=== PATIENT | female | born 1985 | race Caucasian/White ===

== ENCOUNTER → 2016-10-22 | Outpatient (CLI) | payer OTHER ==
--- NOTE | 2016-10-22 10:06 | US ---
Dear Dr. Yang, Thank you for sending your patient, Elizabeth Franco, to us for an US and consultation to assess anatomy. As you know, the patient is a 30 y.o. G1, P0 at 19 weeks and 4 days with an EDC of 03/14/17 based on LMP and 12 week US. Her is complicated by Zika exposure with negative serum testi ng. Genetic Screening: Sequential Screen reassuring The patient denies any uterine contractions, vaginal bleeding, or loss of fluid. Today, she is witho ut complaints. US FINDINGS: Number of fetuses: 1 Placental location: Anterior, No previa Placental Cord Insertion: Central presentation: Variable Cervix: 4.6 cm, transabdominally MVP: 3.9 cm The adnexa were evaluated. No pathology was seen. Right ovary: Normal Left ovary: Normal heart rate: 142 bpm Measurements: Biparietal diameter: 44 mm, 19 weeks 3 days Head circumference: 172 mm, 19 weeks 6 days Abdominal circumference: 146 mm, 20 weeks 0 days Femur length: 31 mm, 19 weeks 4 days Humerus length: 32 mm, 20 weeks 5 days Transcerebellar diameter: 20 mm, 19 weeks 3 days Average ultrasound age: 19 weeks 5 days Estimated weight: 306 g weight percentile: 52% Anatomy: Supratentorial brain: Normal Cerebral lateral ventricle: 4 mm Posterior fossa: Normal Cisterna magna: 5 mm Nuchal fold: 4.6 mm Face: - Lip: Normal - Profile: Normal - Alveolar Ridge: Suboptimal Spine: -- Cervical: Normal -- Thoracic: Normal -- Lumbar: Normal -- Sacral: Normal Heart: -- 4 Chamber: Normal -- Intraventricular septum: Appears intact by Color and Spectral US -- Right Outflow Tract: Suboptimal -- Left Outflow Tract: Suboptimal -- 3 Vessel View: Suboptimal -- Aortic Arch: Suboptimal -- Ductal Arch: Normal -- Caval View: Suboptimal Diaphragm: Suboptimal Stomach: Normal Abdominal Umbilical Cord Insertion: Normal Right kidney: Normal Left kidney: Normal Bladder: Normal Number of cord vessels: 3 Upper extremities: -- Right Arm: Normal -- Right Hand: Suboptimal -- Left Arm: Normal -- Left Hand: Suboptimal Lower extremities: -- Right Leg: Normal -- Right Foot: Suboptimal -- Left Leg: Normal -- Left Foot: Suboptimal Gender: Limited visualization, but appears female IMPRESSION: 1. Anatomy: The fetus measures appropriate for gestational age, measuring a normal weight and perce ntile. Visualization of the fetus today reveals no overt structural anomalies. However, the pa late, cardiac views, diaphragm, hands, and feet were not well seen secondary to position. Ther e is evidence of normal amniotic fluid, and movement was seen during the examination. - Follow-up anatomy un 4 weeks 2. Genetic Screening: This patient has had reassuring Sequential Screen results this . Toda y, no markers of aneuploidy were seen. While her screening and US results are reassuring, we r eviewed that aneuploidy can only be definitively excluded with diagnostic testing via amniocen tesis. After this discussion, the patient does not wish to proceed with invasive testing at this bernardino e. 3. Zika Exposure: Today, the head size and intracranial anatomy appear reassuring. Despite her negative serum testing, the CDC recommends serial US to assess head size and intracranial jak eufemia. - US in 4 weeks to assess head size and intracranial anatomy - Continued condom use until 6 months from return to US Thank you again for sending this patient to see us today. Approximately 15 minutes of a total visit time of 12 minutes were spent with this patient today in direct face to face counseling regarding to day's US findings and the above recommendations. Please feel free to contact me with any questions at . Katrina Rojas MD Maternal- Medicine
--- NOTE | 2016-10-22 10:20 | US ---
OB Sonogram History: HUMAIRA 03/14/2017, 19 weeks 4 days, check growth and anatomy, Zika exposure Comparison: September 05, 2016 Findings: There is a single viable uterine gestation in variable lie. The placenta is anterior witho ut evidence of previa. The lower margin of the placenta is approximately 3.2 cm above the internal o s. The umbilical cord inserts normally into the placenta. The cervix is closed measuring 4.6 cm torres sabdominally. The maternal left ovary is normal. The maternal right ovary is normal. Maximum amnioti c fluid pocket = 8.9 cm. The visualized intracranial contents, face and spine look normal. The heart is 4 chambered and has a rate of 142 bpm. The right and left ventricular outflow tracks and in terventricular septum look normal. Fluid is identified in the stomach and urinary bladde r. The renal region normal. The umbilical cord has 3 vessels and a normal insertion site. Ther e are 4 extremities. BPD = 44 mm = 19 weeks 3 days Head circumference = 172 mm = 19 weeks 6 days Abdominal circumference = 146 mm = 20 weeks 0 day Femur length = 31 mm = 19 weeks 4 days Humeral length = 32 mm = 20 weeks 5 days Cerebellar width = 20 mm = 19 weeks 3 days Cisterna magna = 5.2 mm Estimated weight = 306 g = 52 percentile Average gestational age by ultrasound = 19 weeks 5 days Ultrasound HUMAIRA March 13, 2017 Impression: Size consistent with dates. Normal anatomy. This report should be read in conjunction with a consultation by Dr. Katrina Rojas.
== END ==
LOC: FIMAGING 08:06
PROVIDERS: ATTEND Obstetrics & Gynecology
DX: Z03.79 Encounter for other suspected maternal and fetal conditions ruled out (principal); Z3A.19 19 weeks gestation of pregnancy

== ENCOUNTER → 2016-11-04 | Outpatient (CLI) | payer OTHER | LOC: FIMAGING 09:48 | PROVIDERS: ATTEND Obstetrics & Gynecology | DX: O26.612 Liver and biliary tract disorders in pregnancy, second trimester (principal); O10.919 Unspecified pre-existing hypertension complicating pregnancy, unspecified trimester; Z3A.21 21 weeks gestation of pregnancy ==

== ENCOUNTER → 2016-11-18 | Outpatient (CLI) | payer OTHER | LOC: FIMAGING 13:39 | PROVIDERS: ATTEND Obstetrics & Gynecology | DX: Z34.02 Encounter for supervision of normal first pregnancy, second trimester (principal); Z3A.23 23 weeks gestation of pregnancy; Z20.828 Contact with and (suspected) exposure to other viral communicable diseases ==

== ENCOUNTER → 2016-12-19 | Outpatient (CLI) | payer OTHER | LOC: FIMAGING 14:09 | PROVIDERS: ATTEND Obstetrics & Gynecology | DX: O35.3XX1 Maternal care for (suspected) damage to fetus from viral disease in mother, fetus 1 (principal); Z20.828 Contact with and (suspected) exposure to other viral communicable diseases; Z3A.27 27 weeks gestation of pregnancy ==

== ENCOUNTER → 2017-01-28 | Outpatient (CLI) | payer OTHER | LOC: FIMAGING 08:47 | PROVIDERS: ATTEND Obstetrics & Gynecology | DX: O35.3XX1 Maternal care for (suspected) damage to fetus from viral disease in mother, fetus 1 (principal); Z20.828 Contact with and (suspected) exposure to other viral communicable diseases; O14.03 Mild to moderate pre-eclampsia, third trimester; Z3A.33 33 weeks gestation of pregnancy ==

== ENCOUNTER 2017-02-18 16:28 | Observation (INO) | payer OTHER ==
[2017-02-18 17:06] LABS: % IMMATURE GRANULYOCYTES 1.3 % (0.0-1.1); ABSOLUTE IMMATURE GRANULOCYTES 0.12 10^3/uL (0.00-0.10); ADD DIFF? NO; ADD MORPH? NO; ADD SCAN? NO; ATYPICAL LYMPHOCYTE FLAG 0 (0-99); FRAGMENT RBC FLAG 0 (0-99); HEMATOCRIT 36.7 % (38.0-47.0); HEMOGLOBIN 12.8 g/dL (12.6-16.3); LEFT SHIFT FLG 10 (0-99); LIPEMIA HEMOLYSIS FLAG 90 (0-99); MEAN CELL HEMOGLOBIN CONCENTR. 34.9 g/dL (32.4-36.7); MEAN CELL VOLUME 88.9 fL (81.5-99.8); MEAN PLATELET VOLUME 11.7 fL (8.7-11.7); PLATELET CLUMPS FLAG 0 (0-99); PLATELET COUNT 202 10^3/uL (150-400); RED BLOOD CELL COUNT 4.13 10^6/uL (4.18-5.33); RED CELL DISTRIBUTION WIDTH 12.5 % (11.5-15.2)
[2017-02-18 17:09] LABS: ALANINE AMINOTRANSFERASE 35 IU/L (9-52); ASPARTATE AMINOTRANSFERASE 23 IU/L (14-46); BILIRUBIN,TOTAL 0.5 mg/dL (0.1-1.4); BILIRUBIN-CONJUGATED 0.3 mg/dL (0.0-0.5); BILIRUBIN-UNCONJUGATED 0.2 mg/dL (0.0-1.1); CREATININE 0.5 mg/dL (0.6-1.0); GLOMERULAR FILTRATION RATE > 60; LACTATE DEHYDROGENASE 462 IU/L (313-618); URIC ACID 4.4 mg/dL (2.5-6.8)
[2017-02-18] MEDS ORDERED: BETAMETHASONE IM SYRINGE IM ONE (18:22)
--- NOTE | 2017-02-18 20:18 | GHP ---
[f rep st] HISTORY AND PHYSICAL DATE OF ADMISSION: 02/18/2017 OB Triage Note CHIEF COMPLAINT: None. HISTORY OF PRESENT ILLNESS: The patient is a 31-year-old 1, para 0 female at 36 weeks and 4 days estimated gestational age, who presented for her routine nonstress test in clinic and was note d to have an elevated blood pressure of 160/76. She denied any visual changes, headaches, right upp er quadrant pain, or any other complaints. She denied any vaginal bleeding, leakage of fluid, contr actions, and reported good movement. The patient was sent to Labor and Delivery for further e valuation. She currently still has no symptoms of preeclampsia. Her , her course significant for the following: Genetic screening negative: Alarm Security Or Surveillance Monitor madeline hypertension with suspected mild preeclampsia. PAST MEDICAL HISTORY: Chronic hypertension. OBJECTIVE: VITAL SIGNS: Blood pressure 107 to 133 over 56 to 74, heart rate 88. HEART RATE TRACING: Reactive and reassuring with a baseline in the 130s with accelerations and moderate variab ility present. TOCOMETER: No contractions seen. GENERAL: No acute distress. Well-developed, wel l-nourished female. CHEST: Clear to auscultation bilaterally. CARDIOVASCULAR: Regular rate and r hythm. EXTREMITIES: DTRs 2+ bilaterally. LABORATORY DATA: CBC and PIH panel are normal with a hematocrit of 36.7, platelets of 202. Serum c reatinine at 0.5. Uric acid of 4.4. Liver function tests that are normal. ASSESSMENT: Patient is a 31-year-old 1, para 0 female at 36 weeks and 4 days estimated gest ational age with history of chronic hypertension. PLAN: 1. Chronic hypertension: The patient had one blood pressure in clinic that was elevated at 160/76. Since she has been observed on Labor and Delivery there have been completely normal blood pressure s. The patient is asymptomatic and she has normal serum preeclampsia labs, in fact her uric acid de creased from 4.6 to 4.4. Since all of her blood pressures are quite normal, I discussed her case wi th the perinatologist, who agreed that this is not currently concerning for preeclampsia. We will a llow the patient to be discharged home and will continue to monitor her closely as an outpatient. I discussed the case with Dr. Alexa Heredia and she indicated that as long as her blood pressures remai yun less than 160/105 that it is very reasonable to allow the patient to continue with the plan for induction as scheduled next week at 37 weeks and 5 days. 2. status reassuring: A rescue course of steroids were discussed due to her late sta tus and recommended by the perinatologist. We will give her one dose of betamethasone today and hav e her follow up for the second dose tomorrow in clinic. 3. Disposition: We will plan for followup in clinic tomorrow afternoon for repeat blood pressure c heck, NST, and second dose of steroids. Strict preeclampsia precautions were reviewed, and all ques tions were answered. /[id number]/MODL
== END 2017-02-18 19:00 | disposition home or self-care (01) ==
LOC: FLD 16:28
PROVIDERS: ADMIT Obstetrics & Gynecology; ATTEND Obstetrics & Gynecology
DX: O10.913 Unspecified pre-existing hypertension complicating pregnancy, third trimester (principal); Z3A.36 36 weeks gestation of pregnancy
CPT/HCPCS: 59025; 96372; G0378; J0702

== ENCOUNTER 2017-02-26 17:00 | Inpatient (IN) | payer OTHER ==
--- NOTE | 2017-02-26 18:30 | GHP ---
[f rep st] HISTORY AND PHYSICAL DATE OF ADMISSION: 02/26/2017 CHIEF COMPLAINT: Induction of labor for superimposed preeclampsia without severe features. HISTORY OF PRESENT ILLNESS: The patient is a 31-year-old, 1, para 0, at 37 weeks 5 days estimated gestational age by last menstrual period and 1st trimester ultrasound, who presents for induction of labor. Her has been complicated by chronic hypertension that has been controlled in the mild range without medications. Her blood pressures began increasing in the last few weeks and a 24-hour urine protein was done demonstrating protein of 435 g; in the 1st trimester, it had been less than 115. The remainder of her preeclampsia labs have been within normal limits and her blood pressures have stayed within mild range but, based on the new elevation in protein, she meets criteria for superimposed preeclampsia. She has been in testing with reassuring heart rate tracing and normal fluid. She has an active baby. She denies any contractions, leaking or bleeding. She presented to the office today and had a Seo bulb placed. REVIEW OF SYSTEMS: Negative except per HPI. PAST MEDICAL HISTORY: Chronic hypertension. PAST SURGICAL HISTORY: Toe surgery in 2007. FAMILY HISTORY: Noncontributory. SOCIAL HISTORY: She is . She denies tobacco, alcohol or drug use. MEDICATIONS: vitamins. ALLERGIES: None. OBJECTIVE: VITAL SIGNS: Pending admission to labor and delivery. GENERAL: Alert, awake. No acute distress. CARDIOVASCULAR: Regular rate and rhythm. RESPIRATORY: Lungs are clear. ABDOMEN: Gravid, soft, nontender. EXTREMITIES: No edema. STERILE VAGINAL: 1 cm dilation, 50% effaced, -2 station. Vertex presentation. A Seo bulb placed without difficulty with 30 cc of saline. LABORATORY DATA: complicated by exposure to Zika with negative serum testing, mildly elevated LFTs which have since resolved and she was found to have low-grade hepatic steatosis on right upper quadrant ultrasound. She has completed her Tdap vaccine. She had a normal nuchal translucency ultrasound and sequential screen and is not a carrier for cystic fibrosis. OB laboratories notable for blood type A positive, antibody screen negative. Hematocrit 39.4 in the 1st trimester. Normal Pap smear. She is immune to varicella and rubella, nonreactive to RPR, hep B surface antigen, and HIV. Negative urine culture. Negative gonorrhea and chlamydia. Normal 1-hour Glucola of 102. Repeat hemoglobin 11.8. Group B strep negative on 02/14/2017. She had a normal anatomy ultrasound. ASSESSMENT AND PLAN: The patient is a 31-year-old, 1, para 0, at 37 weeks and 5 days estimated gestational age. She presents for induction of labor for superimposed preeclampsia without severe features. Seo bulb has been placed. NST will be performed at time of admission to L&D. Will monitor blood pressures and check her preeclampsia labs to ensure that magnesium is not indicated for seizure prophylaxis. Will plan to start Pitocin at 5:00 am tomorrow morning. We reviewed the risks and benefits of induction in detail and she agrees to proceed. Group B strep is negative. No antibiotics are indicated. Plan routine intrapartum care. /[id number]/MODL MTDD
[2017-02-26] MEDS ORDERED: LIDOCAINE 1% 300 MG/30 ML SDV ONE (18:49)
[2017-02-26] MEDS ORDERED: TERBUTALINE SULFATE 1 MG/ML VIAL ONE (18:49)
[2017-02-26] MEDS ORDERED: MISOPROSTOL 200 MCG TAB ONE (18:49)
[2017-02-26] MEDS ORDERED: OLIVE OIL 118 ML BTL ONE (18:49)
[2017-02-26] MEDS ORDERED: AMMONIA AROMATIC 1 EACH AMP IH ONE (18:49)
[2017-02-26] MEDS ORDERED: ZOLPIDEM TARTRATE 5 MG TAB PO PRN (18:51)
[2017-02-26] MEDS ORDERED: ACETAMINOPHEN 325 MG TAB PO PRN (18:52)
[2017-02-26] MEDS ORDERED: CALCIUM CARBONATE 500 MG CHEWABLE TAB PO PRN (18:52)
[2017-02-26] MEDS ORDERED: OXYTOCIN/RINGERS LACTATE 1,000 ML IV PRN (18:53)
[2017-02-26] MEDS ORDERED: LR 1,000 ML IV PRN (18:53)
[2017-02-26] MEDS ORDERED: EPSOM SALT 454 GM TP PRN (18:53)
[2017-02-26] MEDS ORDERED: OLIVE OIL 118 ML BTL MISC PRN (18:53)
[2017-02-26] MEDS ORDERED: TERBUTALINE SULFATE 1 MG/ML VIAL IV PRN (18:53)
[2017-02-26 22:14] LABS: % IMMATURE GRANULYOCYTES 1.4 % (0.0-1.1); ABSOLUTE IMMATURE GRANULOCYTES 0.15 10^3/uL (0.00-0.10); ADD DIFF? NO; ADD MORPH? NO; ADD SCAN? NO; ATYPICAL LYMPHOCYTE FLAG 10 (0-99); FRAGMENT RBC FLAG 10 (0-99); HEMATOCRIT 36.8 % (38.0-47.0); HEMOGLOBIN 12.8 g/dL (12.6-16.3); LEFT SHIFT FLG 10 (0-99); LIPEMIA HEMOLYSIS FLAG 90 (0-99); MEAN CELL HEMOGLOBIN 31.1 pg (27.9-34.1); MEAN CELL HEMOGLOBIN CONCENTR. 34.8 g/dL (32.4-36.7); MEAN CELL VOLUME 89.5 fL (81.5-99.8); MEAN PLATELET VOLUME 11.9 fL (8.7-11.7); PLATELET CLUMPS FLAG 60 (0-99); PLATELET COUNT 209 10^3/uL (150-400); RED BLOOD CELL COUNT 4.11 10^6/uL (4.18-5.33); RED CELL DISTRIBUTION WIDTH 12.4 % (11.5-15.2)
[2017-02-26] MEDS ORDERED: OXYTOCIN/LR *STANDARD DOSE PROTOCOL IV SCH (22:30)
--- NOTE | 2017-02-27 08:38 | OBPROG ---
OBG Labor Progress Note Assessment/Plan: Assessment: Pt is a 31 y/o at 37+6 weeks EGA admitted for IOL for CHTN and superimposed mild preeclampsia - Plan: 1) status reassuring, cat 1 2) Labor - will continue w/ induction with pitocin 3) Pain - no issues, may have HUNG when desired 4) GBS neg 02/27/17 08:37 Subjective: Pt feels well, no complaints except a little RUQ discomfort. Objective: 02/26/17 21:00 Patient ABO/Rh A POSITIVE 02/26/17 21:00 - SVE Dilation (cm): 4 Effacement (%): 50 Station: -3 Pratt Current Contraction Pattern: Irregular FHR (bpm): 140 FHR Pattern Variability: Moderate FHR Category: 1 Membranes: AROM Amniotic Fluid Color: Clear - Procedures Non-surgical Procedures: Amniotomy Oxytocin Orders Assessment - Pre-Induction/Augmentation Assessment Gestational Age: 37 week(s) and 5 day(s) ICD10 Worksheet Patient Problems: Problems Problem Status Onset Pre-eclampsia added to pre-existing hypertension Acute Chronic hypertension in obstetric context in third trimester Acute - ICD10 Problem Qualifiers (1) Pre-eclampsia added to pre-existing hypertension
[2017-02-27 09:30] LABS: ALANINE AMINOTRANSFERASE 27 IU/L (9-52); ASPARTATE AMINOTRANSFERASE 22 IU/L (14-46); BILIRUBIN,TOTAL 0.9 mg/dL (0.1-1.4); BILIRUBIN-CONJUGATED 0.4 mg/dL (0.0-0.5); BILIRUBIN-UNCONJUGATED 0.5 mg/dL (0.0-1.1); CREATININE 0.5 mg/dL (0.6-1.0); GLOMERULAR FILTRATION RATE > 60; LACTATE DEHYDROGENASE 473 IU/L (313-618); URIC ACID 5.2 mg/dL (2.5-6.8)
[2017-02-27] MEDS ORDERED: BUPIVACAINE 0.25% 30 ML SDV ONE (12:13)
[2017-02-27] MEDS ORDERED: PHENYLEPHRINE HCL 100 MCG/ML SYR ONE (12:13)
[2017-02-27] MEDS ORDERED: fentaNYL 2MCG/ML/BUP 0.1% RTU 100 ML BAG EP ONE (12:13)
[2017-02-27] MEDS ORDERED: fentaNYL 100 MCG/2 ML INJ ONE (12:14)
[2017-02-27] MEDS ORDERED: ONDANSETRON 4 MG/2 ML VIAL IVP PRN (12:58)
[2017-02-27] MEDS ORDERED: PHENYLEPHRINE HCL 100 MCG/ML SYR IVP PRN (12:58)
[2017-02-27] MEDS ORDERED: LR 500 ML IV SCH (13:00)
[2017-02-27] MEDS ORDERED: fentaNYL 2MCG/ML/BUP 0.1% RTU 100 ML EP SCH (13:00)
--- NOTE | 2017-02-27 13:03 | PREANESOB ---
Obstetric Pre-Anesthesia Info - General Info Proposed Procedure: Labor and delivery with pitocin. : 1 Para: 0 WBD: 38 - Info Status: Full Term Monitors: External FHR Baseline (bpm): 140 FHR Pattern: Reassuring - Labor Status Cervical Dilation per last OB SVE: 4 Station per last OB SVE: -3 Rupture of Membranes Time: 09:00 Pitocin: In Use PIH: Mild Indications for Labor Analgesia: Induction of Labor, Pain Control Labor Epidural: Proposed Anesthesia ROS: Prior general anesthesia for foot surgery. Allergies/Adverse Reactions: Allergy/AdvReac Type Severity Reaction Status Date / Time No Known Allergies Allergy Unverified 02/18/17 18:22 Home Medications: Medication Instructions Recorded Docusate Sodium [Stool Softener] 50 mg PO 02/26/17 Iron 18 mg PO 02/26/17 Vit27&Calcium/Iron/FA 02/26/17 [] Visit Medications: Generic Name Dose Route Start Last Admin Trade Name Freq PRN Reason Stop Dose Admin Acetaminophen 650 mg 02/26/17 18:52 Tylenol PO 08/25/17 18:51 Q6 PRN Pain, Mild Able to Take PO Calcium Carbonate 1,000 mg 02/26/17 18:52 Tums PO 08/25/17 18:51 Q4 PRN GERD Lactated Ringer's 1,000 mls @ 0 mls/hr 02/26/17 18:53 Lr IV 08/25/17 18:52 PRN PRN SEE PROTOCOL CONDITIONS Protocol Per Protocol Oxytocin/Lactated Ringer's 1,000 mls @ 150 mls/hr 02/26/17 18:53 Pitocin 20 Units/Lr (Premix) IV PRN PRN Post- bleeding Oxytocin/Lactated Ringer's 500 mls @ 0 mls/hr 02/26/17 22:30 Pitocin 30 Units/Lr (Premix) IV 08/25/17 22:29 CONT LYNDON Protocol Per Protocol Ibuprofen 600 mg 02/26/17 18:53 Motrin PO 08/25/17 18:52 Q6HRS PRN post , inflammation Magnesium Sulfate 454 gm 02/26/17 18:53 Epsom Salt TP 08/25/17 18:52 PRN PRN perineal discomfort Central Oil 118 ml 02/26/17 18:53 Sweet Oil MISC 08/25/17 18:52 ONCE PRN preneal massage Terbutaline Sulfate 0.25 mg 02/26/17 18:53 Brethine IV 08/25/17 18:52 ONCE PRN Tachysystole Zolpidem Tartrate 5 - 10 mg 02/26/17 18:51 02/26/17 21:27 Ambien PO 08/25/17 18:50 5 mg HS PRN Administration Sleep/Insomnia Discontinued Medications Generic Name Dose Route Start Last Admin Trade Name Arianna PRN Reason Stop Dose Admin Ammonia (Aromatic Spirit) Confirm 02/26/17 18:49 Ammonia Aromatic Administered 02/26/17 18:50 Dose 1 each IH .STK-MED ONE Bupivacaine HCl Confirm 02/27/17 12:13 Sensorcaine 0.25% Sdv Administered 02/27/17 12:14 Dose 30 ml .ROUTE .STK-MED ONE Fentanyl Confirm 02/27/17 12:14 Sublimaze Administered 02/27/17 12:15 Dose 100 mcg .ROUTE .STK-MED ONE Fentanyl/Bupivacaine HCl Confirm 02/27/17 12:13 Fentanyl/Bupivacaine/Ns 2 Mcg/Ml 0.1% (Premix Administered 02/27/17 12:14 Dose 100 ml EP .STK-MED ONE Lidocaine HCl Confirm 02/26/17 18:49 Lidocaine Hcl 1% Administered 02/26/17 18:50 Dose 300 mg .ROUTE .STK-MED ONE Misoprostol Confirm 02/26/17 18:49 Cytotec Administered 02/26/17 18:50 Dose 1,000 mcg .ROUTE .STK-MED ONE Central Oil Confirm 02/26/17 18:49 Sweet Oil Administered 02/26/17 18:50 Dose 118 ml .ROUTE .STK-MED ONE Phenylephrine HCl Confirm 02/27/17 12:13 Neosynephrine Administered 02/27/17 12:14 Dose 1,000 mcg .ROUTE .STK-MED ONE Terbutaline Sulfate Confirm 02/26/17 18:49 Brethine Administered 02/26/17 18:50 Dose 1 mg .ROUTE .STK-MED ONE - Anesthesia History Response to Local Anesthetics: Normal Anesthesia & Operative History: No Prior Problems Family Anesthesia History: Negative - Social History Substance Use/Abuse: Denies - Focused Exam Blood Pressure: 112/71 Heart Rate: 83 Respiratory Rate: 16 Height/Weight (Nursing): Height 160.02 cm Weight 105.687 kg Physical Exam: Within normal limits. ASA Status: II Labs: 02/26/17 21:00 02/27/17 09:00 Patient ABO/Rh A POSITIVE 02/26/17 21:00 Uric Acid 5.2 mg/dL (2.5-6.8) 02/27/17 09:00 Total Bilirubin 0.9 mg/dL (0.1-1.4) 02/27/17 09:00 Conjugated Bilirubin 0.4 mg/dL (0.0-0.5) 02/27/17 09:00 Unconjugated Bilirubin 0.5 mg/dL (0.0-1.1) 02/27/17 09:00 AST 22 IU/L (14-46) 02/27/17 09:00 ALT 27 IU/L (9-52) 02/27/17 09:00 Lactate Dehydrogenase 473 IU/L (313-618) 02/27/17 09:00 - Plan Anesthetic Plan: CSE Consent Signed and on Chart: Yes Patient/Guardian Understands and Agrees to Plan: Yes
--- NOTE | 2017-02-27 13:05 | POSTANESTH ---
Post Anesthetic Evaluation Cardiovascular Status: Normal, Stable Respiratory Status: Normal, Stable, Similar to Pre-op Cond. Level of Consciousness/Mental Status: Can Participate in Eval, Alert and Oriented Pain Control: Adequate, Prn Tx Ordered Nausea/Vomiting Control: Adequate, Prn Tx Ordered Complications Possibly Related to Anesthesia: None Noted
--- NOTE | 2017-02-27 13:17 | OBPROG ---
OBG Labor Progress Note Assessment/Plan: Assessment: Pt is a 31 y/o at 37+6 weeks EGA admitted for IOL for CHTN and superimposed mild preeclampsia - Plan: 1) status reassuring, cat 1 2) Labor - will continue w/ induction with pitocin 3) Pain - no issues, HUNG working well 4) GBS neg 5) CHTN/preeclampsia - BP's stable in mild range, PIH labs normal. 02/27/17 13:16 Subjective: Pt feels comfortable now with HUNG in place. Objective: 02/26/17 21:00 02/27/17 09:00 Patient ABO/Rh A POSITIVE 02/26/17 21:00 Uric Acid 5.2 mg/dL (2.5-6.8) 02/27/17 09:00 Total Bilirubin 0.9 mg/dL (0.1-1.4) 02/27/17 09:00 Conjugated Bilirubin 0.4 mg/dL (0.0-0.5) 02/27/17 09:00 Unconjugated Bilirubin 0.5 mg/dL (0.0-1.1) 02/27/17 09:00 AST 22 IU/L (14-46) 02/27/17 09:00 ALT 27 IU/L (9-52) 02/27/17 09:00 Lactate Dehydrogenase 473 IU/L (313-618) 02/27/17 09:00 Temp Pulse Resp BP Pulse Ox 83 16 112/71 02/27/17 13:05 02/27/17 13:05 02/27/17 13:05 - SVE Dilation (cm): 4 Effacement (%): 100 Station: -1 Pratt Current Contraction Pattern: Regular FHR (bpm): 140 FHR Pattern Variability: Moderate FHR Category: 1 Membranes: AROM Amniotic Fluid Color: Clear - Procedures Non-surgical Procedures: Amniotomy Oxytocin Orders Assessment - Pre-Induction/Augmentation Assessment Gestational Age: 37 week(s) and 5 day(s) ICD10 Worksheet Patient Problems: Problems Problem Status Onset Pre-eclampsia added to pre-existing hypertension Acute Chronic hypertension in obstetric context in third trimester Acute - ICD10 Problem Qualifiers (1) Pre-eclampsia added to pre-existing hypertension
--- NOTE | 2017-02-27 18:42 | OBPROG ---
OBG Labor Progress Note Assessment/Plan: Assessment: Pt is a 31 y/o at 37+6 weeks EGA admitted for IOL for CHTN and superimposed mild preeclampsia - Plan: 1) status reassuring, cat 1 2) Labor - AL/C/+1. will continue w/ induction with pitocin. Will hopefully start pushing soon. 3) Pain - no issues, HUNG working well 4) GBS neg 5) CHTN/preeclampsia - BP's stable in mild range other than one elevated DBP just now; PIH labs normal. 02/27/17 18:41 Subjective: Pt is comfortable with HUNG. Objective: 02/26/17 21:00 02/27/17 09:00 Patient ABO/Rh A POSITIVE 02/26/17 21:00 Uric Acid 5.2 mg/dL (2.5-6.8) 02/27/17 09:00 Total Bilirubin 0.9 mg/dL (0.1-1.4) 02/27/17 09:00 Conjugated Bilirubin 0.4 mg/dL (0.0-0.5) 02/27/17 09:00 Unconjugated Bilirubin 0.5 mg/dL (0.0-1.1) 02/27/17 09:00 AST 22 IU/L (14-46) 02/27/17 09:00 ALT 27 IU/L (9-52) 02/27/17 09:00 Lactate Dehydrogenase 473 IU/L (313-618) 02/27/17 09:00 Temp Pulse Resp BP Pulse Ox 83 16 112/71 02/27/17 13:05 02/27/17 13:05 02/27/17 13:05 - SVE Dilation (cm): 9 Effacement (%): 100 Station: +1 Pratt Current Contraction Pattern: Regular FHR (bpm): 140 FHR Pattern Variability: Moderate FHR Category: 1 Membranes: AROM Amniotic Fluid Color: Clear - Procedures Non-surgical Procedures: Amniotomy Oxytocin Orders Assessment - Pre-Induction/Augmentation Assessment Gestational Age: 37 week(s) and 5 day(s) ICD10 Worksheet Patient Problems: Problems Problem Status Onset Pre-eclampsia added to pre-existing hypertension Acute Chronic hypertension in obstetric context in third trimester Acute - ICD10 Problem Qualifiers (1) Pre-eclampsia added to pre-existing hypertension
--- NOTE | 2017-02-27 19:43 | OBPROG ---
OBG Labor Progress Note Assessment/Plan: Assessment: Pt is a 31 y/o at 37+6 weeks EGA admitted for IOL for CHTN and superimposed mild preeclampsia - Plan: 1) status reassuring, cat 1 2) Labor - Still AL/C/+1, baby in LOP position. Will try different position changes to rotate the baby and recheck in 1 hour. Continue w/ induction with pitocin. 3) Pain - no issues, HUNG working well 4) GBS neg 5) CHTN/preeclampsia - BP's stable in mild range right now; admission PIH labs normal. 02/27/17 19:42 Subjective: No complaints. Comfortable with HUNG. Objective: 02/26/17 21:00 02/27/17 09:00 Patient ABO/Rh A POSITIVE 02/26/17 21:00 Uric Acid 5.2 mg/dL (2.5-6.8) 02/27/17 09:00 Total Bilirubin 0.9 mg/dL (0.1-1.4) 02/27/17 09:00 Conjugated Bilirubin 0.4 mg/dL (0.0-0.5) 02/27/17 09:00 Unconjugated Bilirubin 0.5 mg/dL (0.0-1.1) 02/27/17 09:00 AST 22 IU/L (14-46) 02/27/17 09:00 ALT 27 IU/L (9-52) 02/27/17 09:00 Lactate Dehydrogenase 473 IU/L (313-618) 02/27/17 09:00 Temp Pulse Resp BP Pulse Ox 83 16 112/71 02/27/17 13:05 02/27/17 13:05 02/27/17 13:05 - SVE Dilation (cm): 9 Effacement (%): 100 Station: +1 - Procedures Non-surgical Procedures: Amniotomy Oxytocin Orders Assessment - Pre-Induction/Augmentation Assessment Gestational Age: 37 week(s) and 5 day(s) ICD10 Worksheet Patient Problems: Problems Problem Status Onset Pre-eclampsia added to pre-existing hypertension Acute Chronic hypertension in obstetric context in third trimester Acute - ICD10 Problem Qualifiers (1) Pre-eclampsia added to pre-existing hypertension
--- NOTE | 2017-02-27 20:52 | OBPROG ---
OBG Labor Progress Note Assessment/Plan: Assessment: Pt is a 31 y/o at 37+6 weeks EGA admitted for IOL for CHTN and superimposed mild preeclampsia - Plan: 1) status reassuring, cat 1 2) Labor - Baby had descended further to +2 with soft anterior lip - the lip was easily reduced with pushing and has stayed reduced. Good pushing efforts, will continue pushing. Pitocin increased to 22 mU/min to increase the frequency of ctx. 3) Pain - no issues, HUNG working well 4) GBS neg 5) CHTN/preeclampsia - BP's stable in mild range right now; admission PIH labs normal. 02/27/17 20:50 Subjective: Pt comfortable. Objective: 02/26/17 21:00 02/27/17 09:00 Patient ABO/Rh A POSITIVE 02/26/17 21:00 Uric Acid 5.2 mg/dL (2.5-6.8) 02/27/17 09:00 Total Bilirubin 0.9 mg/dL (0.1-1.4) 02/27/17 09:00 Conjugated Bilirubin 0.4 mg/dL (0.0-0.5) 02/27/17 09:00 Unconjugated Bilirubin 0.5 mg/dL (0.0-1.1) 02/27/17 09:00 AST 22 IU/L (14-46) 02/27/17 09:00 ALT 27 IU/L (9-52) 02/27/17 09:00 Lactate Dehydrogenase 473 IU/L (313-618) 02/27/17 09:00 Temp Pulse Resp BP Pulse Ox 83 16 112/71 02/27/17 13:05 02/27/17 13:05 02/27/17 13:05 - SVE Dilation (cm): 10 Effacement (%): 100 Station: +2 Pratt Current Contraction Pattern: Regular FHR (bpm): 140 FHR Pattern Variability: Moderate FHR Category: 2 (occasional variable or early decels) Membranes: AROM Amniotic Fluid Color: Clear - Procedures Non-surgical Procedures: Amniotomy Oxytocin Orders Assessment - Pre-Induction/Augmentation Assessment Gestational Age: 37 week(s) and 5 day(s) ICD10 Worksheet Patient Problems: Problems Problem Status Onset Pre-eclampsia added to pre-existing hypertension Acute Chronic hypertension in obstetric context in third trimester Acute - ICD10 Problem Qualifiers (1) Pre-eclampsia added to pre-existing hypertension
--- NOTE | 2017-02-27 22:01 | OBDEL ---
Info Type: Vaginal GBS+: No Indications for Delivery: Chronic Hypertension Controlled No Meds, Preeclampsia Mild Vaginal Delivery - Labor and Delivery Onset of Contractions Date: 02/27/17 Onset of Contractions Time: 09:00 Onset of Contractions Type: Induced Rupture of Membranes Date: 02/27/17 Rupture of Membranes Time: 08:29 Rupture of Membranes Type: Artificial Amniotic Fluid Color: Clear Dilation Complete Date: 02/27/17 Dilation Complete Time: 20:35 Placenta Delivery Date: 02/27/17 Placenta Delivery Time: 21:28 Total Hours of Labor: 12 Non-surgical Procedures: Amniotomy Laceration: Other (Specify) (left vaginal sulcus at 0500 (no extention to perineum) and left labial repaired with interrupted 4-0 vicryl) Repair: 2-0, Vicryl Vaginal Sponge Count Correct: Yes Vaginal Needle Count Correct: Yes Vaginal Sweep Performed: Yes EBL: 250 cc Delivery Events: Nuchal Cord (reduced after delivery of the head, but tight. Body cord as well that baby delivered through.) Delivery Comment: Patient pushed and head delivered, tight nuchal cord reduced, then baby delivered through a body cord. Baby placed on maternal abdomen, but then cord clamped x 2 and cut because further resuscitation needed. Baby taken to warmer and excellent cry noted. Cord segment obtained for cord gases, then cord blood obtained. Placenta delivered and intact w/ 3VC. Uterus firm w/ massage. Vaginal sulcus tear noted along left side, no extension to perineum, repaired with a running, locked stitch of 2-0 vicryl and hemostatic. Perineum intact. Small left labial laceration repaired with interrupted stitches using 4 -0 vicryl. Baby doing well, all hemostatic. - Medications Labor Augmentation/Induction Methods Used: Pitocin, Seo Bulb Labor Augmentation/Induction Indication: Medical (CHTN w/ superimposed mild preeclampsia) [place] [facility] Delivery Date: 02/27/17 Delivery Time: 21:23 HUMAIRA: 03/14/17 Gestational Age: 37 week(s) and 6 day(s) Sex of Infant: Female Score (1 Min): 6 Score (5 Min): 9 ICD10 Worksheet Patient Problems: Problems Problem Status Onset Pre-eclampsia added to pre-existing hypertension Acute (spontaneous vaginal delivery) Acute Chronic hypertension in obstetric context in third trimester Acute - ICD10 Problem Qualifiers (1) Pre-eclampsia added to pre-existing hypertension (2) (spontaneous vaginal delivery)
[2017-02-27] MEDS ORDERED: HYDROCORTISONE 0.5% CREAM TP PRN (22:03)
[2017-02-27] MEDS ORDERED: SIMETHICONE 80 MG TAB CHEW PO PRN (22:03)
[2017-02-27] MEDS ORDERED: ACETAMINOPHEN 325 MG TAB PO PRN (22:03)
[2017-02-27] MEDS: IBUPROFEN 600 MG TAB PO PRN (22:36)
[2017-02-28] MEDS: IBUPROFEN 600 MG TAB PO PRN ×4 (04:32→23:53)
--- NOTE | 2017-02-28 08:04 | OBPP ---
Progress Note Assessment/Plan: Assessment: 31 y.o. s/p after IOL for mild preeclampsia. Recovering well with good pain control. Plan: Routine care and orders. consult. Anticipate discharge to home tomorrow. 02/28/17 08:02 Subjective: Reports good pain control with minimal vaginal bleeding. well. Ambulating well without vertigo. Eating and drinking well without nausea or vomiting. Appropriate mood with good support system. Objective: 02/28/17 04:50 02/27/17 09:00 Patient ABO/Rh A POSITIVE 02/26/17 21:00 Uric Acid 5.2 mg/dL (2.5-6.8) 02/27/17 09:00 Total Bilirubin 0.9 mg/dL (0.1-1.4) 02/27/17 09:00 Conjugated Bilirubin 0.4 mg/dL (0.0-0.5) 02/27/17 09:00 Unconjugated Bilirubin 0.5 mg/dL (0.0-1.1) 02/27/17 09:00 AST 22 IU/L (14-46) 02/27/17 09:00 ALT 27 IU/L (9-52) 02/27/17 09:00 Lactate Dehydrogenase 473 IU/L (313-618) 02/27/17 09:00 Temp Pulse Resp BP Pulse Ox 36.8 C 91 17 138/86 H 97 02/28/17 04:40 02/28/17 04:40 02/28/17 04:40 02/28/17 04:40 02/28/17 04:40 Uterine Position/Fundal Height: Umbilicus -1 Uterine Tone: Firm Physical Exam - Physical Exam General Appearance: WD/WN, alert, no apparent distress EENT: normal ENT inspection Neck: non-tender, full range of motion, normal inspection Respiratory: lungs clear, normal breath sounds Cardiac/Chest: regular rate, rhythm Abdomen: non-tender, soft Extremities: non-tender, normal inspection Back: Normal inspection Skin: normal color, warm/dry Neuro/Psych: alert, normal mood/affect, oriented x 3
[2017-02-28] MEDS: DOCUSATE SODIUM 100 MG CAP PO PRN ×2 (09:26→21:35)
[2017-02-28] MEDS: IRON POLYSAC/IRON HEME 28 MG TAB PO SCH (09:26)
[2017-02-28 11:17] LABS: % IMMATURE GRANULYOCYTES 0.7 % (0.0-1.1); ABSOLUTE IMMATURE GRANULOCYTES 0.11 10^3/uL (0.00-0.10); ADD DIFF? NO; ADD MORPH? NO; ADD SCAN? NO; ATYPICAL LYMPHOCYTE FLAG 0 (0-99); FRAGMENT RBC FLAG 0 (0-99); HEMATOCRIT 34.1 % (38.0-47.0); LEFT SHIFT FLG 50 (0-99); LIPEMIA HEMOLYSIS FLAG 90 (0-99); MEAN CELL HEMOGLOBIN 31.5 pg (27.9-34.1); MEAN CELL HEMOGLOBIN CONCENTR. 35.2 g/dL (32.4-36.7); MEAN CELL VOLUME 89.5 fL (81.5-99.8); MEAN PLATELET VOLUME 12.2 fL (8.7-11.7); PLATELET CLUMPS FLAG 80 (0-99); PLATELET COUNT 155 10^3/uL (150-400); RED BLOOD CELL COUNT 3.81 10^6/uL (4.18-5.33); RED CELL DISTRIBUTION WIDTH 12.3 % (11.5-15.2)
[2017-02-28] MEDS: HYDROCODONE/APAP 5/325 TAB PO PRN ×2 (13:37→21:36)
[2017-03-01] MEDS: HYDROCODONE/APAP 5/325 TAB PO PRN ×3 (01:06→11:03)
[2017-03-01] MEDS: IBUPROFEN 600 MG TAB PO PRN ×2 (05:51→12:10)
--- NOTE | 2017-03-01 09:50 | OBGCSDC ---
General Delivery Information - General Info : 1 Para: 1 Delivery Physician/CNM: Yashira Yang Admission Date: 02/26/17 Labs: Patient ABO/Rh A POSITIVE 02/26/17 21:00 Hct 33.7 % (38.0-47.0) L 02/28/17 04:50 Vaginal - Diagnosis Labor: Induced Rupture of Membranes Type: Artificial Amniotic Fluid Color: Clear Laceration: Other (Specify) (left vaginal sulcus at 0500 (no extention to perineum) and left labial repaired with interrupted 4-0 vicryl) Repair: 2-0, Vicryl Delivery Events: Nuchal Cord (reduced after delivery of the head, but tight. Body cord as well that baby delivered through.) - Operations/Procedures Non-surgical Procedures: Amniotomy L&D Analgesia/Anesthesia Type: Epidural - Delivery Non-surgical Procedures: Amniotomy L&D Analgesia/Anesthesia Type: Epidural [place] [facility] Delivery Date: 02/27/17 Delivery Time: HUMAIRA: 03/14/17 Gestational Age: 38 week(s) and 1 day(s) Sex of : Female Weight (gm): 3222 g Score (1 Min): 6 Score (5 Min): 9 Discharge Information - Discharge Information Discharge Medications: Iron, Ibuprofen, Oxycodone, Vitamins Condition: Good Instruction/Follow Up: Four Weeks, Six Weeks Discharge Physician/CNM: Elizabeth Williamson
[2017-03-01 11:03] VITALS: BP 132/91; PULSE 77; RESP 18; TEMP 98.5; O2SAT 96
[2017-03-01] MEDS: IRON POLYSAC/IRON HEME 28 MG TAB PO SCH (11:03)
[2017-03-01] MEDS: DOCUSATE SODIUM 100 MG CAP PO PRN (11:03)
== END 2017-03-01 13:00 | disposition home or self-care (01) | DRG 774 ==
LOC: FLD 17:38 → FOB 02-28 01:36
PROVIDERS: ADMIT Obstetrics & Gynecology; ATTEND Obstetrics & Gynecology
DX: O11.3 Pre-existing hypertension with pre-eclampsia, third trimester (principal); O70.0 First degree perineal laceration during delivery; O69.1XX0 Labor and delivery complicated by cord around neck, with compression, not applicable or unspecified; O69.2XX0 Labor and delivery complicated by other cord entanglement, with compression, not applicable or unspecified; Z3A.38 38 weeks gestation of pregnancy; Z37.0 Single live birth
CPT/HCPCS: J2370; J2590; J3010; J3105